=== PATIENT | male | born 1930 | race Hispanic/Latino ===

== ENCOUNTER 2017-10-01 09:12 | Emergency (ER) | payer MEDICARE, OTHER ==
[2017-10-01 09:21] VITALS: BMI 20.9
[2017-10-01 09:22] VITALS: BP 192/92; PULSE 82; RESP 18; TEMP 97.6; O2SAT 100
[2017-10-01] MEDS ORDERED: TDAP Vaccine 0.5 mL Syr IM ONE (09:32)
--- NOTE | 2017-10-01 09:41 | ED PDOC ---
Arrival/HPI - General Chief Complaint: Trauma Time Seen by Provider: 10/01/17 09:25 Historian: Patient - History of Present Illness Narrative History of Present Illness (Text): 10/01/17 09:33 87yo male with PMHx of hypertension who present with complaint of left knee pain and abrasion s/p trauma this morning. Patient states he tripped over the side walk and fell, landing on his left knee. He denies hitting head anywhere. Denies LOC, dizziness, nausea, vomiting, visual change. any other complaint. He is not up to date with his TD booster. Denies any other complaint. Past Medical History - Provider Review Nursing Documentation Reviewed: Yes - Cardiac Hx Cardiac Disorders: Yes Hx Hypertension: Yes - Pulmonary Hx Respiratory Disorders: No - Neurological Hx Neurological Disorder: No - HEENT Hx HEENT Disorder: Yes (CURYUNG) - Renal Hx Renal Disorder: No - Endocrine/Metabolic Hx Endocrine Disorders: No - Hematological/Oncological Hx Blood Disorders: Yes Hx Anemia: Yes - Integumentary Hx Dermatological Disorder: No - Musculoskeletal/Rheumatological Hx Musculoskeletal Disorders: No Hx Falls: No - Gastrointestinal Hx Gastrointestinal Disorders: No - Genitourinary/Gynecological Hx Genitourinary Disorders: No - Psychiatric Hx Psychophysiologic Disorder: No Hx Substance Use: No - Surgical History Hx Cholecystectomy: Yes - Suicidal Assessment Feels Threatened In Home Enviroment: No Family/Social History - Physician Review Nursing Documentation Reviewed: Yes Family/Social History: Unknown Family HX Smoking Status: Former Smoker Hx Alcohol Use: No Hx Substance Use: No Allergies/Home Meds Allergies/Adverse Reactions: Allergies No Known Allergies Allergy (Verified 10/01/17 09:27) Home Medications: Home Meds Medication Instructions Recorded Confirmed Aspirin 81 mg PO DAILY 01/29/13 10/01/17 Lisinopril 5 mg PO DAILY 01/29/13 10/01/17 Review of Systems - Physician Review All systems were reviewed & negative as marked: Yes - Review of Systems Constitutional: Normal Eyes: Normal ENT: Normal Respiratory: Normal Cardiovascular: Normal Gastrointestinal: Normal Genitourinary Male: Normal Musculoskeletal: Arthralgias (Left knee) Skin: Other (Abrasion) Neurological: Normal Endocrine: Normal Hemo/Lymphatic: Normal Psychiatric: Normal Physical Exam Vital Signs Reviewed: Yes Vital Signs Temp Pulse Resp BP Pulse Ox 10/01/17 09:21 97.6 F 82 18 192/92 H 100 Temperature: Afebrile Blood Pressure: Normal Pulse: Regular Respiratory Rate: Normal Appearance: Positive for: Well-Appearing, Non-Toxic, Comfortable Pain Distress: None Mental Status: Positive for: Alert and Oriented X 3 - Systems Exam Head: Present: Atraumatic, Normocephalic Pupils: Present: PERRL Extroacular Muscles: Present: EOMI Conjunctiva: Present: Normal Mouth: Present: Moist Mucous Membranes Neck: Present: Normal Range of Motion Respiratory/Chest: Present: Clear to Auscultation, Good Air Exchange. No: Respiratory Distress, Accessory Muscle Use Cardiovascular: Present: Regular Rate and Rhythm, Normal S1, S2. No: Murmurs Abdomen: No: Tenderness, Distention, Peritoneal Signs Back: Present: Normal Inspection Upper Extremity: Present: Normal Inspection. No: Cyanosis, Edema Lower Extremity: Present: NORMAL PULSES, Normal ROM, Neurovascularly Intact, Other (Abrasion noted to left anterior knee). No: Edema, Tenderness, Swelling Neurological: Present: GCS=15, CN II-XII Intact, Speech Normal Skin: Present: Warm, Dry, Normal Color, Abrasion (LEft knee, right volar hand and left 5th finger abrasions noted). No: Rashes Psychiatric: Present: Alert, Oriented x 3, Normal Insight, Normal Concentration Medical Decision Making ED Course and Treatment: 10/01/17 10:42 PT in ED for staed history. He was AAO x3. Neurologically intact. abrasion was irrigated, clenased, bacitracine applied and dressed TD booster ordered Head CT - No acute finding LEft knee xray - No acute fracture noted Result was DW the pt. He will be DC home to f/u with his PMD. Advised to keep wound clean and dry. Bacitracine ointment rx given. - RAD Interpretation Radiology Orders: 10/01/17 09:31 HEAD W/O CONTRAST [CT] Stat KNEE WITH PATELLA LEFT 3 VIEW [RAD] Stat - Medication Orders Current Medication Orders: Discontinued Medications Tetanus/Reduced Diphtheria/Acell Pertussis (Boostrix Vaccine Inj) 0.5 ml IM .ONCE ONE Stop: 10/01/17 09:33 Last Admin: 10/01/17 10:10 Dose: 0.5 ml Immunization Registry Document 10/01/17 10:10 ARIS (Rec: 10/01/17 10:11 ARIS [id number]) Immunization Registry Consent Date 10/01/17 Disposition/Present on Arrival - Present on Arrival Any Indicators Present on Arrival: No History of DVT/PE: No History of Uncontrolled Diabetes: No Urinary Catheter: No History of Decub. Ulcer: No History Surgical Site Infection Following: None - Disposition Have Diagnosis and Disposition been Completed?: Yes Diagnosis: Abrasion, Knee sprain, Head injury Disposition: HOME/ ROUTINE Disposition Time: 11:40 Patient Plan: Discharge Patient Problems: Current Active Problems Problem Status Onset Abrasion Acute Knee sprain Acute Condition: STABLE Discharge Instructions (ExitCare): Knee Sprain (DC) Additional Instructions: Keep wound clean and dry Follow up with your Doctor Return to ED for any new or worsening symptoms Prescriptions: Bacitracin Ointment [Bacitracin] 30 gm TOP BID #1 tube Referrals: Deonte Guerra DO [Staff Provider] - Follow up with primary Forms: [employer] (Khmer)
--- NOTE | 2017-10-01 10:15 | CT ---
PROCEDURE: CT HEAD WITHOUT CONTRAST. HISTORY: s/p head injury COMPARISON: None available. TECHNIQUE: Axial computed tomography images were obtained through the head/brain without intravenous contrast. Radiation dose: Total exam DLP = mGy-cm. This CT exam was performed using one or more of the following dose reduction techniques: Automated exposure control, adjustment of the mA and/or kV according to patient size, and/or use of iterative reconstruction technique. FINDINGS: HEMORRHAGE: No intracranial hemorrhage. BRAIN: No mass effect or edema. 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 VENTRICLES: Unremarkable. No hydrocephalus. CALVARIUM: Small left frontal soft tissue contusion. No intracranial hemorrhage. . PARANASAL SINUSES: Unremarkable as visualized. No significant inflammatory changes. MASTOID AIR CELLS: Unremarkable as visualized. No inflammatory changes. OTHER FINDINGS: None. IMPRESSION: Small left frontal soft tissue contusion. No intracranial hemorrhage. .
--- NOTE | 2017-10-01 12:21 | RAD ---
PROCEDURE: Left Knee Radiographs. HISTORY: Pain. COMPARISON: None. FINDINGS: BONES: Normal. No fracture. JOINTS: Normal. No osteoarthritis. JOINT EFFUSION: None. OTHER FINDINGS: None. IMPRESSION: Normal radiographs of the left knee.
== END 2017-10-01 11:50 | disposition home or self-care (01) ==
LOC: ED 09:12
DX: S83.92XA Sprain of unspecified site of left knee, initial encounter (principal); S80.212A Abrasion, left knee, initial encounter; S60.511A Abrasion of right hand, initial encounter; S60.417A Abrasion of left little finger, initial encounter; S09.90XA Unspecified injury of head, initial encounter; W01.0XXA Fall on same level from slipping, tripping and stumbling without subsequent striking against object, initial encounter; Y92.480 Sidewalk as the place of occurrence of the external cause; Z23 Encounter for immunization